=== PATIENT | female | born 1980 | race Caucasian/White ===

== ENCOUNTER → 2017-04-05 | Outpatient (CLI) | payer OTHER ==
[2017-04-05 14:54] LABS: ESTIMATED AVERAGE GLUCOSE 120 mg/dl; HA1C FLAG Normal (Normal)
[2017-04-05 14:55] LABS: HEMATOCRIT 42.4 % (37-47)
[2017-04-05 15:03] LABS: ALT/SGPT 27 U/L (12-78); BLOOD UREA NITROGEN 11 mg/dl (7-18); BUN/CREATININE RATIO 12.5 (10-20); CARBON DIOXIDE 27 mmol/L (21-32); CHLORIDE 104 mmol/L (98-107); CHOLESTEROL 217 mg/dl (0-200); CREATININE 0.84 mg/dl (0.60-1.20); GLUCOSE 86 mg/dl (70-99); POTASSIUM 4.3 mmol/L (3.5-5.1); SODIUM 138 mmol/L (136-145); TRIGLYCERIDES 126 mg/dl (0-150); VERY LOW DENSITY LIPOPROT CALC 25 mg/dl
[2017-04-05 15:05] LABS: CALCIUM 9.3 mg/dl (8.5-10.1)
[2017-04-05 15:11] LABS: RATIO 6.9 mcg/mg (0-30.0)
[2017-04-05 15:14] LABS: ALB/GLOB RATIO 1.2 (0.9-2); ALKALINE PHOSPHATASE 84 U/L (45-117); AST/SGOT 15 U/L (15-37); CHOLESTEROL/HDL RATIO 4.3; HDL CHOLESTEROL 50 mg/dl; LDL CHOLESTEROL CALCULATED 142 mg/dl
== END | disposition home or self-care (01) ==
LOC: C.LAB1850 12:51
PROVIDERS: ATTEND Internal Medicine Endocrinology, Diabetes & Metabolism
DX: E28.2 Polycystic ovarian syndrome (principal); R73.03 Prediabetes; M79.1 Myalgia

== ENCOUNTER → 2017-09-05 | Outpatient (CLI) | payer OTHER ==
[2017-09-05 12:37] LABS: CHOLESTEROL/HDL RATIO 2.7
[2017-09-05 12:56] LABS: ESTIMATED AVERAGE GLUCOSE 120 mg/dl; HA1C FLAG Normal (Normal)
== END | disposition home or self-care (01) ==
LOC: C.LAB1850 10:12
PROVIDERS: ATTEND Internal Medicine Endocrinology, Diabetes & Metabolism
DX: E28.2 Polycystic ovarian syndrome (principal); E78.5 Hyperlipidemia, unspecified; R73.03 Prediabetes; E55.9 Vitamin D deficiency, unspecified

== ENCOUNTER → 2017-09-30 | Outpatient (CLI) | payer OTHER ==
[~2017-09-30] MED LIST: OPTIRAY 320 IV PRN
--- NOTE | 2017-09-30 10:58 | DIAGNOSTIC IMAGING REPORT ---
CT OF THE ABDOMEN AND PELVIS WITH AND WITHOUT CONTRAST ADRENAL PROTOCOL CLINICAL HISTORY: Elevated dehydroepiandrosterone (DHEA) level. Hounsfield unit assessment COMPARISON STUDY: None. TECHNIQUE: Initially, unenhanced axial images of the abdomen were obtained. Axial images of the abdomen and pelvis were then obtained during venous phase following intravenous injection of 93 cc of Optiray 320 IV. Finally, 15 minute delayed phase imaging through the abdomen was performed. A dose lowering technique was utilized adhering to the principles of ALARA. CT DOSE: 2202.92 mGycm FINDINGS: No adrenal nodule is present. The size of the adrenal glands is normal. The liver, spleen, adrenal glands and pancreas are normal. There is no biliary ductal dilatation status post cholecystectomy. The caliber and wall thickness of small and large bowel are normal. The appendix is normal. The uterus is surgically absent. The ovaries are not enlarged. There is a dominant follicle within the left ovary. No abdominal or pelvic lymphadenopathy is present. There is no ascites. There is no pancreatic ductal dilatation. No suspicious osseous lesions are present. IMPRESSION: 1. No adrenal nodule. Normal CT appearance of the adrenal glands. 2. No acute process within the abdomen or pelvis. Electronically signed by: Sherwin Vaughan M.D. 09/30/2017 10:57 AM Dictated Date/Time: 09/30/2017 10:48 AM
== END | disposition home or self-care (01) ==
LOC: C.CTS 10:04
PROVIDERS: ATTEND Internal Medicine Endocrinology, Diabetes & Metabolism
DX: E27.8 Other specified disorders of adrenal gland (principal)

== ENCOUNTER → 2018-03-01 | Outpatient (CLI) | payer OTHER ==
[2018-03-01 09:46] LABS: HEMOGLOBIN A1C 5.8 % (4.5-5.6)
== END | disposition home or self-care (01) ==
LOC: C.LAB 08:33
PROVIDERS: ATTEND Internal Medicine Endocrinology, Diabetes & Metabolism
DX: E78.5 Hyperlipidemia, unspecified (principal); E55.9 Vitamin D deficiency, unspecified; R73.03 Prediabetes